=== PATIENT | female | born 1930 | race Caucasian/White ===

== ENCOUNTER 2021-01-22 19:57 | Inpatient (IN) | payer OTHER, SELFPAY ==
[~2021-01-22] VITALS: Ht 157.5 cm; Wt 72.6 kg
[2021-01-22 20:09] VITALS: BP_SYST 130
--- NOTE | 2021-01-22 20:09 | NUR ---
Placed in room 01 . Placed on monitoring specialist, blood pressure machine and pulse oximeter. To gown for exam. Side rails up.
[2021-01-22] MEDS ORDERED: ONDANSETRON HCL 4 MG/2 ML VIAL IVP ONE (20:15)
[2021-01-22] MEDS ORDERED: MORPHINE 4 MG INJ. 4 MG/ML VIAL IVP ONE ×2 (20:15→23:15)
[2021-01-22 20:35] LABS: BASOPHILS # (AUTO) 0.1 K/uL (0.0-0.2); BASOPHILS % (AUTO) 0.8 % (0.0-2.0); EOSINOPHILS # (AUTO) 0.2 K/uL (0.0-0.4); EOSINOPHILS % (AUTO) 3.1 % (0.0-4.0); HEMATOCRIT 34.5 % (36-48); HEMOGLOBIN 11.6 g/dL (12.0-16.0); LYMPHOCYTES # (AUTO) 1.5 K/uL (1.0-5.5); LYMPHOCYTES % (AUTO) 19.8 % (20.5-51.5); MEAN CORPUSCULAR HEMOGLOBIN 30 pg (27-31); MEAN CORPUSCULAR HGB CONC 34 % (32-36); MEAN CORPUSCULAR VOLUME 89 fL (79.0-98.0); MONOCYTES # (AUTO) 0.6 K/uL (0.0-1.0); MONOCYTES % (AUTO) 8.3 % (1.7-9.3); NEUTROPHILS # (AUTO) 5.1 K/uL (1.8-7.7); PLATELET COUNT (AUTO) 239 K/uL (130-430); RED BLOOD CELL COUNT(AUTO) 3.87 MIL/uL (4.2-6.2); RED CELL DISTRIBUTION WIDTH 14.8 % (9.0-15.0); WHITE BLOOD COUNT (AUTO) 7.5 K/uL (4.8-10.8)
[2021-01-22 20:47] LABS: ANION GAP 11 (5-15); CALCIUM 9.1 mg/dL (8.4-11.0); CHLORIDE 100 mmol/L (98-107); CREATININE 1.59 mg/dL (0.55-1.30); GLUCOSE 122 mg/dL (70-99); POTASSIUM 3.8 mmol/L (3.5-5.1); SODIUM SERUM 138 mmol/L (136-145); UREA NITROGEN, BLOOD 27 mg/dL (8-21)
[2021-01-22 20:53] LABS: ALANINE AMINOTRANSFERASE 14 U/L (12-78); ALBUMIN 3.6 g/dL (3.4-4.8); ASPARTATE AMINOTRANSFERASE 21 U/L (10-37); TOTAL BILIRUBIN 0.5 mg/dL (0.0-1.0)
--- NOTE | 2021-01-22 20:57 | NUR ---
PT BIB AMBULANCE AFTRE A FALL AT HOME, PT DOES NOT REMEMBER WHAT HAPPENED PRIOR TO FALL. PT HAVING SEVERE PAIN TO RIGHT HIP, UNABLE TO MOVE R LEG, PALPABLE PEDAL PULSES, ABLE TO MOVE TOES BUT HAS PAIN IN HIP. PT A/O X 4 AT THIS TIME ABLE TO ANSWER QUESTIONS AND FOLLOW COMMANDS. SKIN IN TACT, NO OPEN WOUNDS. BED IN LOWEST POSITION, BED LOCKED, AND SIDE RAIL UP X 1. PT ON BEDSIDE MONITOR. NKA HX - HTN, STENT PLACEMENT, HIGH CHOLESTEROL
[2021-01-22] MEDS ORDERED: MORPHINE 2 MG/ML INJ. SYRINGE IVP ONE (21:15)
--- NOTE | 2021-01-22 21:16 | NUR ---
SON BROUGHT BACK TO BEDSIDE
[2021-01-22] MEDS ORDERED: LIP10 PO (21:44)
[2021-01-22] MEDS ORDERED: METO-540 (21:44)
[2021-01-22] MEDS ORDERED: LOSA50TA3 PO (21:44)
[2021-01-22] MEDS ORDERED: RIVA15TA PO (21:44)
[2021-01-22] MEDS ORDERED: OMEP20CA15 PO (21:44)
[2021-01-22] MEDS ORDERED: TORS20TA23 PO (21:44)
[2021-01-22] MEDS ORDERED: BENZ-16 PO (21:44)
[2021-01-22] MEDS ORDERED: ONDANSETRON HCL 4 MG/2 ML VIAL IVP PRN (21:45)
[2021-01-22] MEDS ORDERED: HYDROmorphone 1 MG/ML INJ. CARTRIDGE IVP PRN (21:45)
[2021-01-22] MEDS ORDERED: HYDROmorphone 1 MG/ML INJ. CARTRIDGE ONE (21:47)
--- NOTE | 2021-01-22 22:09 | NUR ---
NASAL COVID SWAB DONE AND TAKEN TO LAB
--- NOTE | 2021-01-22 22:28 | NUR ---
# 16 FR Herrera catheter with use of sterile technique. Immediate return of 250 cc YELLOW urine noted. Bedside drainage bag placed below level of bladder. Urine sample collected and sent to lab. Pt tolerated procedure.
[2021-01-22] MEDS: NACL 0.9% 1,000 ML IV SCH (22:34)
--- NOTE | 2021-01-22 23:00 | NUR ---
PT HAS HAD NO RELIEF WITH PAIN MEDS FAR. NEXT SHECSULED PAIN MED NOT FOR 2-3 HRS. ER MD DIPESH ORDER MS FOR NOW. PT MOANING AND CRYING DUE TO CONSTAMT PAIN. WILL MEDICATE ORDERED PER ER MD.
--- NOTE | 2021-01-22 23:00 | NUR ---
PT TOOK PT'S JEWLERY, EARRINGS AND RING HOME.
--- NOTE | 2021-01-22 23:16 | NUR ---
Report given to LEANDRO Lubin. Patient will go to [facility] 117[facility]
[2021-01-23] VITALS (8 sets, daily range): BP systolic 94–140
--- NOTE | 2021-01-23 | NUR ---
WAS UNABLE TO REASSESS FOR PAIN RELIEF, PT WAS TRANSFERRED TO FLOOR. NS STILL INFUSING WELL.
--- NOTE | 2021-01-23 05:08 | NUR ---
CONSULTATION PAGED/CALLED Reason for Consultation: RT HIP FRX Person Who was Notified: FLORENTIN Consulting Physician: SHARON Auto Transmission Specialist Specialty: Ordering Physician: EZE
--- NOTE | 2021-01-23 08:00 | NUR ---
Pt in bed resting. Bed is at lowest position and call light is within reach. Son is at bedside. New linen was provided for pt. No s/s of distress. Pt has no c/o at this time. Skin is intact. IV is intact. NS is running at 50ml/hr. VSS. Will continue to monitor and reassess for pain.
--- NOTE | 2021-01-23 09:30 | NUR ---
Assessed pt and pt's IV was pulled out by pt. Son is at bedside and stated she pulled it out accidently. NS paused until another IV is placed. Pt is c/o hip pain 11/29. VSS.
[2021-01-23 10:00] LABS: BASOPHILS % (AUTO) 0.4 % (0.0-2.0); EOSINOPHILS # (AUTO) 0.2 K/uL (0.0-0.4); EOSINOPHILS % (AUTO) 2.4 % (0.0-4.0); HEMATOCRIT 33.2 % (36-48); HEMOGLOBIN 10.9 g/dL (12.0-16.0); LYMPHOCYTES # (AUTO) 1.2 K/uL (1.0-5.5); LYMPHOCYTES % (AUTO) 14.4 % (20.5-51.5); MEAN CORPUSCULAR HEMOGLOBIN 30 pg (27-31); MEAN CORPUSCULAR HGB CONC 33 % (32-36); MEAN CORPUSCULAR VOLUME 91 fL (79.0-98.0); MONOCYTES # (AUTO) 0.6 K/uL (0.0-1.0); MONOCYTES % (AUTO) 7.7 % (1.7-9.3); NEUTROPHILS # (AUTO) 6.3 K/uL (1.8-7.7); NEUTROPHILS % (AUTO) 75.1 % (40.0-70.0); PLATELET COUNT (AUTO) 213 K/uL (130-430); RED BLOOD CELL COUNT(AUTO) 3.65 MIL/uL (4.2-6.2); RED CELL DISTRIBUTION WIDTH 14.6 % (9.0-15.0); WHITE BLOOD COUNT (AUTO) 8.4 K/uL (4.8-10.8)
[2021-01-23] MEDS ORDERED: hydrALAZINE HCL 20 MG/ML VIAL IVP PRN (10:00)
[2021-01-23] MEDS ORDERED: PANTOPRAZOLE SODIUM 40 MG/VIAL (PROTONIX) IVP ONE (10:00)
[2021-01-23] MEDS ORDERED: LIDOCAINE PATCH 5% 1 EA TP ONE (10:00)
[2021-01-23 10:13] LABS: ANION GAP 11 (5-15); CALCIUM 9.1 mg/dL (8.4-11.0); CHLORIDE 102 mmol/L (98-107); CREATININE 1.95 mg/dL (0.55-1.30); GLUCOSE 105 mg/dL (70-99); POTASSIUM 4.4 mmol/L (3.5-5.1); SODIUM SERUM 139 mmol/L (136-145); UREA NITROGEN, BLOOD 31 mg/dL (8-21)
--- NOTE | 2021-01-23 10:35 | NUR ---
A new IV 22g was placed on her Left AC. Iv is intact and patent. IV wrapped with dressing to help prevent IV getting pulled out again. NS resumed at 50ml/hr. Morphine 2mg given IV.
[2021-01-23] MEDS: MORPHINE 2 MG/ML INJ. SYRINGE IVP PRN (10:45)
--- NOTE | 2021-01-23 11:37 | NUR ---
Nutrition Update Chris Scale 14 noted. Pt admitted for hip fracture. Diet: NPO BMI: 29.3 kg/m2 RD to follow per nutrition care standards.
--- NOTE | 2021-01-23 12:28 | NUR ---
Pt in bed resting with no c/o. Rates hip pain 3/10. All scheduled medications have been given at this time. Pt was moved from room 117 to room 104-A so she can be closer to nurses station for safety purposes.
--- NOTE | 2021-01-23 15:33 | NUR ---
Pt resting in bed with no c/o. Son at bedside and also attending dr is at bedside. Bed is in lowest position and call light within reach. Pt states she has minor pain and does not want any medication at the moment. Has no other c/o. No s/s of distress. VSS.
[2021-01-23] MEDS: NACL 0.9% 1,000 ML IV SCH (18:09)
--- NOTE | 2021-01-23 19:30 | NUR ---
Pt son Froilan requested to have mother move rooms to help her sleep. Son made aware that pt needs to be near nursing station for safety as pt removes ivs and pulls on keita cath. Son agreed that the room was okay to stay in.
[2021-01-23] MEDS: ATORVASTATIN 10 MG TABLET PO SCH (21:16)
--- NOTE | 2021-01-24 | NUR ---
Pt repeatedly tries to remove iv line and keita, blankets have been used to help prevent this. Gopi bandage has been applied to cover and protect IV line from pt.
[2021-01-24 00:40] VITALS: BP_SYST 94
--- NOTE | 2021-01-24 05:55 | NUR ---
Pt repeatedly tries to remove lines and clothes. Pt reports seeing and hearing a friend in the room. Pt has been reoriented several times through the night as she is often up talking to herself as her fellow roommate sleeps.
--- NOTE | 2021-01-24 07:30 | NUR ---
RECEIVED REPORT FROM PM NURSE. PATIENT RESTING IN BED, EYES CLOSED BUT EASILY AROUSABLE. RESPIRATIONS EVEN AND UL ON RA. ALL NEEDS MET. BED IN LOWEST POSITION, CALL LIGHT IN REACH, SAFETY MEASURES IN PLACE. WILL CONT TO MONITOR.
[2021-01-24 07:43] LABS: BASOPHILS % (AUTO) 0.3 % (0.0-2.0); EOSINOPHILS # (AUTO) 0.1 K/uL (0.0-0.4); EOSINOPHILS % (AUTO) 1.3 % (0.0-4.0); HEMATOCRIT 27.7 % (36-48); HEMOGLOBIN 9.4 g/dL (12.0-16.0); LYMPHOCYTES # (AUTO) 0.8 K/uL (1.0-5.5); LYMPHOCYTES % (AUTO) 8.2 % (20.5-51.5); MEAN CORPUSCULAR HEMOGLOBIN 30 pg (27-31); MEAN CORPUSCULAR HGB CONC 34 % (32-36); MEAN CORPUSCULAR VOLUME 90 fL (79.0-98.0); MONOCYTES # (AUTO) 0.9 K/uL (0.0-1.0); MONOCYTES % (AUTO) 8.5 % (1.7-9.3); NEUTROPHILS # (AUTO) 8.4 K/uL (1.8-7.7); NEUTROPHILS % (AUTO) 81.7 % (40.0-70.0); PLATELET COUNT (AUTO) 195 K/uL (130-430); RED BLOOD CELL COUNT(AUTO) 3.09 MIL/uL (4.2-6.2); RED CELL DISTRIBUTION WIDTH 14.8 % (9.0-15.0); WHITE BLOOD COUNT (AUTO) 10.3 K/uL (4.8-10.8)
[2021-01-24 08:05] LABS: ANION GAP 9 (5-15); CALCIUM 8.4 mg/dL (8.4-11.0); CHLORIDE 104 mmol/L (98-107); CREATININE 1.63 mg/dL (0.55-1.30); GLUCOSE 152 mg/dL (70-99); POTASSIUM 4.3 mmol/L (3.5-5.1); SODIUM SERUM 138 mmol/L (136-145); UREA NITROGEN, BLOOD 25 mg/dL (8-21)
[2021-01-24 08:33] VITALS: BP_SYST 127
[2021-01-24] MEDS: LOSARTAN POTASSIUM 50 MG TABLET (COZAAR) PO SCH (08:36)
[2021-01-24] MEDS: METOPROLOL SUCCINATE 25 MG TAB.SR.24H (TOPROL XL) PO SCH (08:36)
[2021-01-24] MEDS: PANTOPRAZOLE SODIUM 40 MG/VIAL (PROTONIX) IVP SCH (08:37)
[2021-01-24] MEDS: LIDOCAINE PATCH 5% 1 EA TP SCH (08:37)
[2021-01-24 12:00] VITALS: BP_SYST 126
[2021-01-24] MEDS: NACL 0.9% 1,000 ML IV SCH (14:15)
[2021-01-24 16:00] VITALS: BP_SYST 117
--- NOTE | 2021-01-24 16:23 | NUR ---
PATIENT FOUND WITH IV DISLODGED, CATH INTACT. ATTEMPTED TO INSERT NEW IV SITE, PT IS REFUSING, STATING "NOT NOW, LATER LATER." WILL ATTEMPT AGAIN. SON AT BEDSIDE. TOMATO PULPER OPERATOR AWARE.
--- NOTE | 2021-01-24 18:20 | NUR ---
INSERTED 22G TO LFA, NS INFUSING PER ORDER, IV SITE WNL. SECURED IV SITE WITH KERLIX, INSTRUCTED PT TO NOT REMOVE IV SITE. PATIENT VERBALIZED UNDERSTANDING. SAFETY MEASURES IN PLACE, WILL CONT TO MONITOR.
--- NOTE | 2021-01-24 19:30 | NUR ---
Opening note Received report from day shift. Pt is awake resting in bed. No s/s of respiratory distress. Breathing even and unlabored. IV site is intact and patent with fluids running at ordered rate. Fall and safety precautions in place with bed in lowest position, bed alarm on, and call light within reach
--- NOTE | 2021-01-24 19:31 | NUR ---
PATIENT RESTING IN BED, NO C/O PAIN/DISCOMFORT. RESPIRATIONS EVEN AND UL ON RA. ALL NEEDS MET. BED IN LOW, SIDE RAILS x2, SAFETY MEASURES IN PLACE, CALL LIGHT IN REACH. REPORT GIVEN TO PM NURSE FOR CONTINUITY OF CARE.
[2021-01-24] MEDS: ATORVASTATIN 10 MG TABLET PO SCH (20:18)
[2021-01-25] VITALS (7 sets, daily range): BP systolic 106–137
--- NOTE | 2021-01-25 00:15 | NUR ---
Rounds Pt is awake in bed watching TV. No s/s of acute distress. No needs at this time. Fall and safety checks in place
[2021-01-25] MEDS: MORPHINE 2 MG/ML INJ. SYRINGE IVP PRN ×2 (01:53→08:57)
[2021-01-25 04:45] LABS: BILIRUBIN,URINE NEGATIVE (NEGATIVE); BLOOD, URINE 2+ (NEGATIVE); CLARITY/URINE SL CLOUDY (CLEAR); COLOR,URINE YELLOW (YELLOW); GLUCOSE,URINE NEGATIVE (NEGATIVE); KETONES,URINE NEGATIVE (NEGATIVE); LEUKOCYTE ESTERASE ,URINE 2+ (NEGATIVE); NITRITE, URINE POSITIVE (NEGATIVE); PH,URINE 5.5 (5.0-8.0); PROTEIN URINE TRACE (NEGATIVE); UROBILINOGEN,URINE 0.2 (0.2-1.0)
[2021-01-25 05:13] LABS: BACTERIA,URINE MANY /HPF (None Seen); WBC,URINE 50-80 /HPF (0-3)
--- NOTE | 2021-01-25 07:08 | NUR ---
Closing note Pt is resting in bed, eyes closed. No s/s of respiratory distress. Breathing even and unlabored. IV site is intact and patent with fluids running at ordered rate. Herrera catheter intact and draining by gravity. All needs met throughout shift. Fall and safety precautions in place with bed in lowest position, bed alarm on, and call light within reach
[2021-01-25 07:17] LABS: BASOPHILS % (AUTO) 0.4 % (0.0-2.0); EOSINOPHILS # (AUTO) 0.1 K/uL (0.0-0.4); EOSINOPHILS % (AUTO) 1.2 % (0.0-4.0); HEMATOCRIT 28.5 % (36-48); HEMOGLOBIN 9.4 g/dL (12.0-16.0); LYMPHOCYTES # (AUTO) 1.2 K/uL (1.0-5.5); LYMPHOCYTES % (AUTO) 9.5 % (20.5-51.5); MEAN CORPUSCULAR HEMOGLOBIN 30 pg (27-31); MEAN CORPUSCULAR HGB CONC 33 % (32-36); MEAN CORPUSCULAR VOLUME 90 fL (79.0-98.0); MONOCYTES # (AUTO) 1.2 K/uL (0.0-1.0); MONOCYTES % (AUTO) 9.7 % (1.7-9.3); NEUTROPHILS # (AUTO) 9.8 K/uL (1.8-7.7); NEUTROPHILS % (AUTO) 79.2 % (40.0-70.0); PLATELET COUNT (AUTO) 202 K/uL (130-430); RED BLOOD CELL COUNT(AUTO) 3.15 MIL/uL (4.2-6.2); RED CELL DISTRIBUTION WIDTH 14.5 % (9.0-15.0); WHITE BLOOD COUNT (AUTO) 12.3 K/uL (4.8-10.8)
[2021-01-25 07:49] LABS: INR 1.2 (0.8-1.2); PROTHROMBIN TIME 12.1 SECS (9.5-12.5)
[2021-01-25 08:07] LABS: ANION GAP 11 (5-15); CALCIUM 8.7 mg/dL (8.4-11.0); CHLORIDE 103 mmol/L (98-107); CREATININE 1.46 mg/dL (0.55-1.30); GLUCOSE 141 mg/dL (70-99); POTASSIUM 4.3 mmol/L (3.5-5.1); SODIUM SERUM 138 mmol/L (136-145); UREA NITROGEN, BLOOD 21 mg/dL (8-21)
--- NOTE | 2021-01-25 08:19 | NUR ---
CONSULTATION PAGED REASON FOR CONSULTATION:A-FIB WAS CONSULT CALLED?Y PERSON WHO WAS NOTIFIED:RICKY CONSULTING PHYSICIAN:EFRAIN ARAUJO GEAR GRINDER SPECIALTY:CARDIO GEAR GRINDER PHONE NUMBER:[phone] REQUESTING PHYSICIAN:HOLLIE MEHTA
--- NOTE | 2021-01-25 08:32 | NUR ---
Cardio Notes: Shawna REEVES informed Dr. Campos of a consultation due to pt with Afib.
--- NOTE | 2021-01-25 08:50 | NUR ---
Pt on tele: Pt placed on tele per Dr. Sharif, due to irregular heart rate.
[2021-01-25] MEDS: PANTOPRAZOLE SODIUM 40 MG/VIAL (PROTONIX) IVP SCH (08:58)
[2021-01-25] MEDS: METOPROLOL SUCCINATE 25 MG TAB.SR.24H (TOPROL XL) PO SCH (08:59)
[2021-01-25] MEDS: LOSARTAN POTASSIUM 50 MG TABLET (COZAAR) PO SCH (09:00)
[2021-01-25] MEDS: LIDOCAINE PATCH 5% 1 EA TP SCH (09:00)
--- NOTE | 2021-01-25 09:07 | NUR ---
Chest pain: Pt complains of chest pain, 2mg IV morphine given. Dr. Campos notified, informed RN to hold Losartan and lidocaine patch. Pt placed on 2L NC, SpO2 99%. IV fluids increased to 80 mL per hour as ordered. EKG ordered. Will continue to monitor.
--- NOTE | 2021-01-25 09:29 | NUR ---
Transfer of care: Transferred care of pt to Neptali RN. Pt stable, resting in bed. No s/s of respiratory distress.
--- NOTE | 2021-01-25 09:30 | NUR ---
Patient received resting in bed, eyes closed, breathing is even and unlabored, neurovascular check complete at this time, continuing to monitor the patient, IVF adjusted by previous nurse to 80ml/hour, IV line is patent and infusing well, Herrera catheter in place draining to gravity, bed in lowest position, three side rails up, bed alarm on, bed close to nursing station, fall and aspiration precautions in place.
--- NOTE | 2021-01-25 11:20 | NUR ---
Called OR spoke with Elicia, regarding time for patient's surgery today. The patient's son called inquiring. The surgery is scheduled for 6:30pm tonight, will inform the patient's son.
--- NOTE | 2021-01-25 12:00 | NUR ---
Family patient's son is present at bedside, informed him of surgery time, he states he will be back this evening before the patient goes to surgery, call with any updates. Froilan (son) [phone]
[2021-01-25] MEDS: NACL 0.9% 1,000 ML IV SCH ×2 (12:52→17:01)
--- NOTE | 2021-01-25 13:55 | NUR ---
RN rounds patient resting in bed, eyes closed, breathing is even and unlabored, no signs of distress, IV line is patent and infusing well, Herrera Catheter intact and draining to gravity, continuing to monitor the patient, current rhythm is A FIB with a heart rate of 110 currently, bed in lowest position, three side rails up, bed alarm on, bed close to nursing station, fall and aspiration precautions in place, call light is within reach.
--- NOTE | 2021-01-25 18:22 | NUR ---
Closing note patient resting in bed, all needs met, Herrera catheter in place, draining to gravity, IV line is patent and infusing well, patient is waiting to go to the OR, called OR, patient will be picked up in about 30-40 minutes, will endorse report to NOC shift nurse, bed in lowest position, three side rails up, bed alarm on, call light is within reach, fall and aspiration precautions in place. Patient's son is at the bedside.
--- NOTE | 2021-01-25 20:00 | NUR ---
open note patient resting in bed with son at bed side. surgery scheduled for hip fracture repair. patient reports no discomfort at this time.
--- NOTE | 2021-01-25 21:53 | NUR ---
Surgery rescheduled Called OR/PACU and s/w Lala. She informed me that surgery is rescheduled for tomorrow and estimates between [phone]. She said patient can be NPO after midnight.
[2021-01-25] MEDS: ATORVASTATIN 10 MG TABLET PO SCH (22:00)
--- NOTE | 2021-01-25 22:18 | NUR ---
phone call with son Patients son called at [phone] asking if his mother was in surgery. He was informed that surgery has been rescheduled for tomorrow.
--- NOTE | 2021-01-25 23:00 | NUR ---
reviewed labs / Dr. Sharif Noted WBC trending up and UA result for this morning is 12.3 with many bacteria; notified Dr. Sharif and also informed she is not on any antibiotic; He asked if she is symptomatic or has fever and I replied no. No orders received.
--- NOTE | 2021-01-26 00:20 | NUR ---
sleeping med / Dr. Sharif Patient can't sleep and requesting sleeping pill. S/W Dr. Sharif and received medication order; TORB
[2021-01-26] MEDS ORDERED: ZOLPIDEM TARTRATE 5 MG TABLET PO PRN ×2 (00:30→08:45)
[2021-01-26 00:36] VITALS: BP_SYST 124
[2021-01-26] MEDS: MORPHINE 2 MG/ML INJ. SYRINGE IVP PRN ×2 (00:42→22:42)
--- NOTE | 2021-01-26 00:47 | NUR ---
moderate pain Patient reporting moderate pain and administered Morphine as ordered; wctm
--- NOTE | 2021-01-26 03:30 | NUR ---
awake, confused Patient is confused and keeps removing telemetry leads and also removed gown. She is calm and resting in bed,not attempting to get up. She was reoriented to surrounds and was not able to redirect; she thinks she is at home in living room. IVF infusing well, safety precautions in place.
[2021-01-26] MEDS: NACL 0.9% 1,000 ML IV SCH ×2 (04:25→22:55)
[2021-01-26 04:55] LABS: BASOPHILS # (AUTO) 0.1 K/uL (0.0-0.2); BASOPHILS % (AUTO) 0.6 % (0.0-2.0); EOSINOPHILS # (AUTO) 0.3 K/uL (0.0-0.4); EOSINOPHILS % (AUTO) 3.2 % (0.0-4.0); HEMATOCRIT 25.8 % (36-48); HEMOGLOBIN 8.5 g/dL (12.0-16.0); LYMPHOCYTES # (AUTO) 0.9 K/uL (1.0-5.5); LYMPHOCYTES % (AUTO) 10.2 % (20.5-51.5); MEAN CORPUSCULAR HEMOGLOBIN 30 pg (27-31); MEAN CORPUSCULAR HGB CONC 33 % (32-36); MEAN CORPUSCULAR VOLUME 92 fL (79.0-98.0); MONOCYTES # (AUTO) 0.8 K/uL (0.0-1.0); MONOCYTES % (AUTO) 8.4 % (1.7-9.3); NEUTROPHILS # (AUTO) 7.1 K/uL (1.8-7.7); NEUTROPHILS % (AUTO) 77.6 % (40.0-70.0); PLATELET COUNT (AUTO) 172 K/uL (130-430); RED BLOOD CELL COUNT(AUTO) 2.81 MIL/uL (4.2-6.2); RED CELL DISTRIBUTION WIDTH 15.2 % (9.0-15.0); WHITE BLOOD COUNT (AUTO) 9.2 K/uL (4.8-10.8)
--- NOTE | 2021-01-26 05:11 | NUR ---
Nutrition Update Chris Scale 15 noted. Pt admitted for Hip fracture Diet: NPO BMI: 29.3 kg/m2 RD to follow per nutrition care standards.
[2021-01-26 05:14] LABS: ANION GAP 8 (5-15); CALCIUM 7.8 mg/dL (8.4-11.0); CHLORIDE 105 mmol/L (98-107); CREATININE 1.35 mg/dL (0.55-1.30); GLUCOSE 132 mg/dL (70-99); POTASSIUM 4.1 mmol/L (3.5-5.1); SODIUM SERUM 136 mmol/L (136-145); UREA NITROGEN, BLOOD 20 mg/dL (8-21)
--- NOTE | 2021-01-26 06:38 | NUR ---
closing noted patient is noted to be sitting in chair with feet elevated on bed. when staff asked if he would like to lay down in bed he stated that the catheter is not comfortable while he is in bed. No noted pulling of the catheter and patient states that he is not in pain. Addendum: 01/26/21 at 0646 by Doretha Meza LVN This note belongs to another patient. error
--- NOTE | 2021-01-26 06:49 | NUR ---
closing note patient resting in bed at present time. She did not fall asleep till 4am. No noted signs of pain. catheter is patent draining clear yellow urine. patient has been NPO since midnight.
--- NOTE | 2021-01-26 07:55 | NUR ---
Opening note resting in bed, a/ox3- reoriented to place, time and event, the patient has periods of forgetfulness, breathing is even and unlabored, neurovascular check complete at this time, IV line is patent and infusing well, Herrera catheter in place draining to gravity, bed in lowest position, three side rails up, bed alarm on, bed close to nursing station, fall and aspiration precautions in place.
--- NOTE | 2021-01-26 08:05 | NUR ---
Transfer of care to Jennyfer REEVES.
[2021-01-26] MEDS: LOSARTAN POTASSIUM 50 MG TABLET (COZAAR) PO SCH (08:31)
[2021-01-26] MEDS: PANTOPRAZOLE SODIUM 40 MG/VIAL (PROTONIX) IVP SCH (08:31)
[2021-01-26] MEDS: LIDOCAINE PATCH 5% 1 EA TP SCH (08:31)
[2021-01-26] MEDS: METOPROLOL SUCCINATE 25 MG TAB.SR.24H (TOPROL XL) PO SCH (08:31)
[2021-01-26 08:44] VITALS: BP_SYST 115
[2021-01-26] MEDS ORDERED: POTASSIUM CHLORIDE 20 MEQ TAB.PRT.SR PO PRN (08:45)
[2021-01-26] MEDS ORDERED: ACETAMINOPHEN 325 MG TABLET PO PRN ×2 (08:45→09:00)
[2021-01-26] MEDS ORDERED: LORazepam 2 MG/ML VIAL IVP PRN (08:45)
[2021-01-26] MEDS ORDERED: ONDANSETRON HCL 4 MG/2 ML VIAL IVP PRN ×2 (08:45→16:00)
[2021-01-26] MEDS ORDERED: MAGNESIUM SULFATE 50 ML IV PRN (08:45)
[2021-01-26] MEDS ORDERED: DOCUSATE SODIUM 100 MG CAPSULE PO PRN (08:45)
[2021-01-26] MEDS ORDERED: MORPHINE 2 MG/ML INJ. SYRINGE IVP PRN (08:45)
[2021-01-26 08:47] VITALS: BP_SYST 115
--- NOTE | 2021-01-26 08:58 | NUR ---
Pt resting in bed, A+Ox2. Pt denies pain. IV noted to R arm infusing NS@80ml/hr. Tele insitu. CSMW satisfactory. No headache, dizziness, chest pain, N+T or edema. Lungs clear. No SOB/cough. RA 97%. BS x4. Void via keita- clear/yellow urine noted. Unknown LBM. Turn Q2H- pt not OOB. Awaiting surgery. NPO since midnight. VSS. Will continue to monitor.
--- NOTE | 2021-01-26 09:30 | NUR ---
Correctional Manager answered call from lab- pt MRSA (+). [phone]: Correctional Manager called Dr. Dailey- message left in regards to MRSA result.
[2021-01-26] MEDS: cefTRIAXone 1 GM in D5W 50 ML IV SCH (10:28)
[2021-01-26 12:00] VITALS: BP_SYST 149
--- NOTE | 2021-01-26 14:04 | NUR ---
CM: Per son Froilan, requesting pt going to [facility] for rehab. Froilan aware the ORIF surgery plans for this pm.
--- NOTE | 2021-01-26 15:57 | NUR ---
Dr. faustin called asking for pt to get a unit of blood. Video And Sound Recorder asked if pt will still be going for surgery and Dr. faustin stated she would but top give the blood as soon as its ready.
[2021-01-26 16:00] VITALS: BP_SYST 133
[2021-01-26] MEDS ORDERED: METOCLOPRAMIDE HCL 10 MG/2 ML VIAL IVP PRN (16:00)
[2021-01-26] MEDS ORDERED: fentaNYL CITRATE/PF 100 MCG/2 ML AMP IVP PRN ×2 (16:00)
[2021-01-26] MEDS ORDERED: WATER FOR IRRIGATION,STERILE 1,000 ML IRRIG.SOLN IR ONE (17:25)
[2021-01-26] MEDS ORDERED: BUPIVACAINE /PF 0.75% 10 ML VIAL INJ ONE (17:25)
[2021-01-26] MEDS ORDERED: CEFAZOLIN 2 GM IVPB PREMIX 50 ML IV ONE (17:25)
[2021-01-26] MEDS ORDERED: NS 500 ML IV.SOLN IV ONE (17:25)
[2021-01-26] MEDS ORDERED: PROPOFOL 200MG/ 20ML VIAL (DIPRIVAN) IV ONE (17:25)
[2021-01-26] MEDS ORDERED: NS IRRIG SOLN 1000 ML IR ONE (17:25)
--- NOTE | 2021-01-26 17:30 | NUR ---
Pt down to OR.
[2021-01-26] MEDS ORDERED: BUPIVACAINE LIPOSOME/PF 266 MG/20 ML VIAL INFIL ONE (18:13)
--- NOTE | 2021-01-26 20:40 | NUR ---
Post op notes From PACU after right hip ORIF patient is drowsy and confused , vitals sign monitored, with blood transfusion infusing , right hip dressing dry/intact , right leg warm to touch, with good peripheral sensation able to wiggle toes , dorsalis pedis pulse positive weak, will continue to monitor. Addendum: 01/26/21 at 2154 by Trisha Fagan RN 0 hours blood transfusion completed , vitals sign stable no sign of transfusion reaction, frequent monitoring , fall risk.
[2021-01-26] MEDS ORDERED: DOCUSATE SODIUM 100 MG CAPSULE PO SCH (21:00)
[2021-01-26] MEDS: ATORVASTATIN 10 MG TABLET PO SCH (21:00)
--- NOTE | 2021-01-26 22:00 | NUR ---
Spoke to son Froilan discussed patient safety , confused after surgery ,non compliant with instruction trying to pull out IV line keita catheter, agreed for wrist restrainst for safety/fall precaution.
[2021-01-26] MEDS ORDERED: CEFAZOLIN 1 GM IVPB PREMIX 50 ML IV ONE (22:22)
--- NOTE | 2021-01-26 22:35 | NUR ---
Patient is complaining of pain in the right hip , PRN pain meds IV push given will monitor safety./fall precaution initiated frequent monitoring.
[2021-01-26 23:18] VITALS: BP_SYST 149
--- NOTE | 2021-01-27 00:20 | NUR ---
Patient calm able to sleep after pain medication , no wrist restrainst , frequent monitoring due to risk of falling safety precaution
[2021-01-27] MEDS: CEFAZOLIN 1 GM IVPB PREMIX 50 ML IV SCH ×2 (01:05→10:22)
[2021-01-27 02:04] VITALS: BP_SYST 140
--- NOTE | 2021-01-27 02:05 | NUR ---
Patient on/off waking up confused telemetry uncontrolled AFIB , NO sign of acute discomfort,safety/fall precaution initiated, frequent monitoring.
--- NOTE | 2021-01-27 04:34 | NUR ---
Right hip dressing changed Patient is confused removed the right hip dressing , no active bleeding with connor , applied dry dressing with gauze under aseptic technique., will monitor.
[2021-01-27 06:49] LABS: BASOPHILS % (AUTO) 0.4 % (0.0-2.0); EOSINOPHILS # (AUTO) 0.1 K/uL (0.0-0.4); EOSINOPHILS % (AUTO) 0.9 % (0.0-4.0); HEMATOCRIT 29.9 % (36-48); HEMOGLOBIN 10.1 g/dL (12.0-16.0); LYMPHOCYTES # (AUTO) 0.8 K/uL (1.0-5.5); LYMPHOCYTES % (AUTO) 7.2 % (20.5-51.5); MEAN CORPUSCULAR HEMOGLOBIN 31 pg (27-31); MEAN CORPUSCULAR HGB CONC 34 % (32-36); MEAN CORPUSCULAR VOLUME 91 fL (79.0-98.0); MONOCYTES # (AUTO) 0.9 K/uL (0.0-1.0); MONOCYTES % (AUTO) 9.1 % (1.7-9.3); NEUTROPHILS # (AUTO) 8.6 K/uL (1.8-7.7); NEUTROPHILS % (AUTO) 82.4 % (40.0-70.0); PLATELET COUNT (AUTO) 174 K/uL (130-430); RED BLOOD CELL COUNT(AUTO) 3.27 MIL/uL (4.2-6.2); RED CELL DISTRIBUTION WIDTH 14.7 % (9.0-15.0); WHITE BLOOD COUNT (AUTO) 10.5 K/uL (4.8-10.8)
[2021-01-27 07:18] LABS: ANION GAP 9 (5-15); CALCIUM 8.4 mg/dL (8.4-11.0); CHLORIDE 108 mmol/L (98-107); CREATININE 1.19 mg/dL (0.55-1.30); GLUCOSE 145 mg/dL (70-99); POTASSIUM 4.1 mmol/L (3.5-5.1); SODIUM SERUM 140 mmol/L (136-145); UREA NITROGEN, BLOOD 18 mg/dL (8-21)
--- NOTE | 2021-01-27 07:40 | NUR ---
OPENING NOTE Received report from night nurse. Patient is alert and oriented x3. On room air and tolerating well with no signs of shortness of breath noted. IV is patent, infusing fluids as ordered. Bed locked and in lowest position. Call light within reach. Bed alarm on. Contact precautions in place. Will continue to monitor.
[2021-01-27 08:00] VITALS: BP_SYST 116
[2021-01-27] MEDS: PANTOPRAZOLE SODIUM 40 MG/VIAL (PROTONIX) IVP SCH (08:15)
[2021-01-27] MEDS: ENOXAPARIN SODIUM 40 MG/0.4 ML SYRINGE SUBCUT SCH (08:16)
[2021-01-27] MEDS: METOPROLOL SUCCINATE 25 MG TAB.SR.24H (TOPROL XL) PO SCH (08:17)
[2021-01-27] MEDS: cefTRIAXone 1 GM in D5W 50 ML IV SCH (08:17)
[2021-01-27] MEDS: MORPHINE 2 MG/ML INJ. SYRINGE IVP PRN (08:21)
[2021-01-27] MEDS: LOSARTAN POTASSIUM 50 MG TABLET (COZAAR) PO SCH (08:28)
[2021-01-27] MEDS: MUPIROCIN 2% TOPICAL OINTMENT 22 GM NS SCH ×2 (08:28→21:27)
[2021-01-27] MEDS: LIDOCAINE PATCH 5% 1 EA TP SCH (08:28)
[2021-01-27] MEDS ORDERED: ENOXAPARIN SODIUM 40 MG/0.4 ML SYRINGE SUBCUT SCH (09:00)
[2021-01-27] MEDS ORDERED: MUPIROCIN 1 GM OIN.PF.APP NS SCH (09:00)
--- NOTE | 2021-01-27 10:00 | NUR ---
RN NOTE Patient up with PT, able to sit on edge of bed. C/O pain at right hip. Morphine IVP given as ordered. Will continue to monitor.
--- NOTE | 2021-01-27 10:21 | NUR ---
Discharge Planning: DCP faxed pt referral to [facility] [phone] per family request, DCP to follow up. Addendum: 01/27/21 at 1230 by Yessi Altamirano DP [facility] [phone] patient will go to Rm 137A when discharged.
[2021-01-27] MEDS: NACL 0.9% 1,000 ML IV SCH ×2 (10:31→23:58)
--- NOTE | 2021-01-27 12:18 | NUR ---
Patient accepted at [facility] room [facility]
[2021-01-27 12:29] VITALS: BP_SYST 130
--- NOTE | 2021-01-27 14:30 | NUR ---
Skin tear Open skin tear noted on right buttocks. Dressing applied. Pictures taken and placed in chart.
[2021-01-27 16:51] VITALS: BP_SYST 125
--- NOTE | 2021-01-27 17:13 | NUR ---
RD Recommendation: Recommend to continue cardiac diet with Glucerna at B & D trays, & Demetrius BID (Provide additional 632 kcal, 25g protein) Encourage PO intake. Please refer to nutrition assessment for details.
--- NOTE | 2021-01-27 18:44 | NUR ---
CLOSING NOTE Patient currently resting in bed and respirations remain even and non-labored. IV is patent and infusing fluids as ordered. Herrera catheter is patent and draining by gravity. Bed alarm on and call light is within reach. Vital signs remained stable throughout shift. All needs met throughout shift. Will endorse to shift mechanic RN.
[2021-01-27 19:50] VITALS: BP_SYST 121
--- NOTE | 2021-01-27 19:50 | NUR ---
Opening notes Pt asleep, easily awakens, no s/s distress noted. VSS, afebrile. R. hip dressing C/D/I. Herrera catheter draining to gravity with dark yellow urine. IVF infusing at ordered rate R. FA 22G no s/s infiltration. Call light within/items within reach. Bed low, locked, siderails up, alarm on. Contact isolation maintained. To monitor.
[2021-01-27] MEDS: ATORVASTATIN 10 MG TABLET PO SCH (21:27)
--- NOTE | 2021-01-27 21:27 | NUR ---
Rounds/med pass Pt resting in bed. No s/s distress noted. Pt refused dinner tray. IVF infusing at ordered rate no s/s infiltration. Meds passed. Pt able to swallow pills whole. To monitor.
--- NOTE | 2021-01-27 21:30 | NUR ---
Incentive spirometer Encouraged pt to use I.S. 10x per hour while awake. Pt demonstrated understanding doing 500-700ml.
[2021-01-28 00:28] VITALS: BP_SYST 113
--- NOTE | 2021-01-28 01:10 | NUR ---
Rounds Pt asleep, no s/s distress noted. IVF infusing at ordered rate no s/s infiltration. Herrera catheter draining to gravity with dark yellow urine. To monitor.
[2021-01-28] MEDS: MORPHINE 2 MG/ML INJ. SYRINGE IVP PRN ×2 (05:44→12:14)
--- NOTE | 2021-01-28 05:55 | NUR ---
Closing notes/Pain/Dressing change Pt resting in bed, no s/s distress. Pt c/o pain 07/30 R. hip. Medicated with Morphine 2mg slow IVP as needed. R. lateral thigh dressing soiled with old dry blood. Changed dressing. Incision intact with connor, no redness or active bleed noted. IVF infusing at ordered rate R. FA no s/s infiltration. Herrera catheter draining to gravity secured. Bed low, locked, siderails up x3, alarm on. Contact isolation maintained. To endorse to AM nurse.
[2021-01-28 06:38] LABS: BASOPHILS # (AUTO) 0.1 K/uL (0.0-0.2); BASOPHILS % (AUTO) 0.6 % (0.0-2.0); EOSINOPHILS # (AUTO) 0.4 K/uL (0.0-0.4); HEMATOCRIT 24.7 % (36-48); HEMOGLOBIN 8.4 g/dL (12.0-16.0); LYMPHOCYTES # (AUTO) 1.1 K/uL (1.0-5.5); LYMPHOCYTES % (AUTO) 10.9 % (20.5-51.5); MEAN CORPUSCULAR HEMOGLOBIN 31 pg (27-31); MEAN CORPUSCULAR HGB CONC 34 % (32-36); MEAN CORPUSCULAR VOLUME 91 fL (79.0-98.0); MONOCYTES # (AUTO) 0.8 K/uL (0.0-1.0); MONOCYTES % (AUTO) 7.9 % (1.7-9.3); NEUTROPHILS # (AUTO) 7.5 K/uL (1.8-7.7); NEUTROPHILS % (AUTO) 76.6 % (40.0-70.0); PLATELET COUNT (AUTO) 177 K/uL (130-430); WHITE BLOOD COUNT (AUTO) 9.8 K/uL (4.8-10.8)
[2021-01-28 06:42] LABS: ANION GAP 10 (5-15); CHLORIDE 109 mmol/L (98-107); CREATININE 1.13 mg/dL (0.55-1.30); GLUCOSE 112 mg/dL (70-99); POTASSIUM 3.8 mmol/L (3.5-5.1); SODIUM SERUM 139 mmol/L (136-145); UREA NITROGEN, BLOOD 21 mg/dL (8-21)
[2021-01-28 08:00] VITALS: BP_SYST 104
--- NOTE | 2021-01-28 08:00 | NUR ---
OPENING NOTE RECEIVED REPORT FROM NIGHT NURSE. PT AxO x2, ONLY ORIENTED TO PERSON AND SITUATION. DENIES ANY PAIN, NO SHORTNESS OF BREATH ON ROOM AIR. IV FLUIDS INFUSING WELL AND NO SIGN OF INFILTRATION. SURGICAL DRESSING ON RIGHT HIP CLEAN, DRY AND INTACT. WARREN CATHETER IN PLACE AND DRAINING WELL. PLAN OF CARE DISCUSSED WITH PATIENT. SAFETY CHECKS DONE AND CALL LIGHT WITHIN REACH.
[2021-01-28] MEDS: LIDOCAINE PATCH 5% 1 EA TP SCH (09:33)
[2021-01-28] MEDS: ENOXAPARIN SODIUM 40 MG/0.4 ML SYRINGE SUBCUT SCH (09:33)
[2021-01-28] MEDS: LOSARTAN POTASSIUM 50 MG TABLET (COZAAR) PO SCH (09:34)
[2021-01-28] MEDS: MUPIROCIN 2% TOPICAL OINTMENT 22 GM NS SCH ×2 (09:35→20:47)
[2021-01-28] MEDS: METOPROLOL SUCCINATE 25 MG TAB.SR.24H (TOPROL XL) PO SCH (09:37)
[2021-01-28] MEDS: cefTRIAXone 1 GM in D5W 50 ML IV SCH (09:38)
[2021-01-28] MEDS: PANTOPRAZOLE SODIUM 40 MG/VIAL (PROTONIX) IVP SCH (09:38)
--- NOTE | 2021-01-28 10:27 | NUR ---
Discharge Planning: DCP faxed pt referral to [facility] [phone] per family request. DCP to follow up
[2021-01-28 12:54] VITALS: BP_SYST 111
[2021-01-28] MEDS: NACL 0.9% 1,000 ML IV SCH (14:33)
--- NOTE | 2021-01-28 15:00 | NUR ---
CM: communicated with [facility], the pt is clinically accepted. She will get the auth from [facility]. I notified the Mishel [facility] reviewer # [phone] [id number] about the dcp and requesting to expedite the authorization process. EVE to f/u in am.
[2021-01-28 16:52] VITALS: BP_SYST 116
--- NOTE | 2021-01-28 17:25 | NUR ---
WOUND CARE WOUND ON RIGHT BUTTOCK CLEANED WITH SALINE SOLUTION AND BARRIER CREAM APPLIED AROUND DEREK WOUND.COVERED WITH FOAM DRESSING. NO BLEEDING NOTED, SCANT YELLOW DRAINAGE ON BANDAGE. PT PAIN IS CONTROLLED, DECLINED PAIN MEDICATION.
--- NOTE | 2021-01-28 18:55 | NUR ---
CLOSING NOTE PT IN BED AND RESTING, REPOSITIONED PT AND STATES SHE IS MORE COMFORTABLE. SAFETY CHECKS WERE COMPLETED AND CALL LIGHT WITHIN REACH.
--- NOTE | 2021-01-28 20:05 | NUR ---
Opening notes Pt awake, watching TV, no s/s distress noted. VSS, afebrile. Pt denies pain at this time. R. hip dressing C/D/I. Herrera catheter draining to gravity with dark yellow urine. IVF infusing at ordered rate R. FA 22G no s/s infiltration. Call light within/items within reach. Bed low, locked, siderails up, alarm on. Contact isolation maintained. To monitor.
[2021-01-28 20:12] VITALS: BP_SYST 123
[2021-01-28] MEDS: ATORVASTATIN 10 MG TABLET PO SCH (20:46)
[2021-01-29 00:30] VITALS: BP_SYST 136
--- NOTE | 2021-01-29 02:35 | NUR ---
Rounds Pt asleep, no s/s distress noted on room air. Call light within reach. Robbie SCDs on. Bed low, locked, siderails up x3, alarm on. To monitor.
[2021-01-29] MEDS: NACL 0.9% 1,000 ML IV SCH (03:01)
--- NOTE | 2021-01-29 06:45 | NUR ---
Closing notes Pt asleep, easily awakens, no s/s distress noted. Pt denies pain at this time. R. hip dressing C/D/I. Herrera catheter draining to gravity with dark yellow urine. IVF infusing at ordered rate R. FA 22G no s/s infiltration. R. heel maintained elevated on pillow. Hip precaution in place. Call light within/items within reach. Bed low, locked, siderails up, alarm on. Contact isolation maintained. To endorse to AM nurse.
--- NOTE | 2021-01-29 08:14 | NUR ---
OPENING NOTES: PATIENT RESTING EATING BREAKFAST.HOB ELEVATED. BREATHING EVEN AND NON LABORED TO RA. BED LOCKED, ALARM ON AND IN LOWEST POSITION. FALL,SAFETY AND ASPIRATION PRECAUTION REINFORCED.CALL LIGHT WITHIN REACH.
[2021-01-29 08:23] VITALS: BP_SYST 112
[2021-01-29] MEDS: METOPROLOL SUCCINATE 25 MG TAB.SR.24H (TOPROL XL) PO SCH (08:39)
[2021-01-29] MEDS: LOSARTAN POTASSIUM 50 MG TABLET (COZAAR) PO SCH (08:39)
[2021-01-29] MEDS: PANTOPRAZOLE SODIUM 40 MG/VIAL (PROTONIX) IVP SCH (08:39)
[2021-01-29] MEDS: LIDOCAINE PATCH 5% 1 EA TP SCH (08:40)
[2021-01-29] MEDS: cefTRIAXone 1 GM in D5W 50 ML IV SCH (08:40)
[2021-01-29] MEDS: MORPHINE 2 MG/ML INJ. SYRINGE IVP PRN (08:43)
[2021-01-29] MEDS: MUPIROCIN 2% TOPICAL OINTMENT 22 GM NS SCH ×2 (08:49→21:38)
[2021-01-29 12:14] VITALS: BP_SYST 101
--- NOTE | 2021-01-29 13:06 | NUR ---
CM: f/u with Bee/[facility] , auth dept # [id number] opt 8. stated the case is in review, no decision made yet.
--- NOTE | 2021-01-29 13:24 | NUR ---
PHYSICAL THERAPY CO-SIGN The Physical Therapy Progress Notes documented by Social Media Sr Strategy Manager have been reviewed. Reviewed/Co-Signed by: Kasey Peters PT Documentation Done by:GÓMEZ HOLLY PTA LATE ENTRY FOR 01/28/21 Addendum: 01/29/21 at 1325 by Kasey Peters PT Amended: Links added.
--- NOTE | 2021-01-29 13:24 | NUR ---
PHYSICAL THERAPY CO-SIGN The Physical Therapy Progress Notes documented by Psychological Anthropologist have been reviewed. Reviewed/Co-Signed by: Kasey Peters PT Documentation Done by:GÓMEZ HOLLY PTA Addendum: 01/29/21 at 1325 by Kasey Peters PT Amended: Links added.
--- NOTE | 2021-01-29 15:23 | NUR ---
RN NOTES/ WC NURSE: WOUND DRESSING AND WOUND CARE DONE WITH WC RN. NO S/S OF ACUTE DISTRESS NOTED. FALL AND SAFETY MEASURES PROVIDED. CALL LIGHT WITHIN REACH.
--- NOTE | 2021-01-29 15:28 | NUR ---
Discharge Planning: Discharge pending [facility] [phone] receiving authorization.
--- NOTE | 2021-01-29 15:29 | NUR ---
WOUND EVALUATION: Wound Consult received from Dr. Sharif. Thank you, Dr. Sharif, for the consult. Patient received in a Leonora Bed with an Isoflex KATIE mattress with low air loss therapy initiated, awake, alert, and oriented. Patient is unable to turn in bed independently. Chris Score is a 16. Past Medical History: A-fib, HTN, HLD, Lumbago, right hip pain, GERD, Hernia Repair (w/ mesh). Recent Labs: WBC 9.8, RBC 2.70, hemoglobin 8.4, hematocrit 24.7, chloride 109, BUN 21, creatinine 1.13, glucose 112, calcium 8.0. Microbiology: Urine culture results positive for E. coli. MRSA screen results positive. Intrinsic factors that delay wound healing: History of Xarelto use for A-fib (patient is now post-op). Extrinsic factors that delay wound healing: Decreased mobility. Wound Assessment: 1. Right Buttock: Skin tear. Skin tear bed has 100% red tissue. No odor, scant sanguineous drainage. Periskin tear intact, small residual skin left. Skin tear measures 2.0 cm x 4.5 cm. Recommend: Cleanse skin tear with normal saline. Gently pat dry around skin tear. Apply Calmoseptine cream onto skin tear. Cover with 4x4 foam dressing. Perform skin tear care daily, and as needed for dressing soiling or dislodgement. 2. Left Buttock: Area of dark discoloration possible ecchymosis. No odor, no drainage. Area is not soft or boggy. Site measures 4.7 cm x 3.9 cm. Recommend: Cleanse site with mild soap and water if soiled. Gently pat dry. Cover site with 4 x 4 foam dressing for protection. Perform site care daily, and as needed for dressing soiling or dislodgment. Also recommend: Reposition patient side to side only every 2 hours with pillow support (Keep 1 pillow underneath each buttock with pillows touching each other underneath patient. Facilitate turning by placing 1 pillow under left buttock for 2 hours, then take same pillow and place underneath right buttock for 2 hours). Do not place patient flat on her back at any time. Off-load pressure areas with pillows for pressure re-distribution. Offload, elevate and float bilateral heels with pillows. Perform skin care and monitor skin integrity Q shift. Use Calmoseptine cream on buttocks and other moisture susceptible areas QID and as needed for soiling. Maintain patient on a low air-loss mattress.
[2021-01-29 15:42] VITALS: BP_SYST 110
[2021-01-29] MEDS ORDERED: MENTHOL/ZINC OXIDE 113 GM OINT. TP PRN (16:00)
[2021-01-29] MEDS: RIVAROXABAN 15 MG TABLET PO SCH (18:07)
--- NOTE | 2021-01-29 19:53 | NUR ---
CLOSING NOTES: PATIENT RESTING IN BED. BREATHING EVEN AND NON LABORED TO RA. BED LOCKED, ALARM ON AND IN LOWEST POSITION. FALL,SAFETY AND ASPIRATION PRECAUTIONS PROVIDED. CALL LIGHT WITHIN REACH.
[2021-01-29 20:00] VITALS: BP_SYST 120
[2021-01-29] MEDS: ATORVASTATIN 10 MG TABLET PO SCH (21:38)
[2021-01-30] VITALS: BP_SYST 121
--- NOTE | 2021-01-30 02:22 | NUR ---
TELE: PT IS OFF THE TELEMONITOR , REMINDED RN AROUND [id number], RN STILL DIDNT PUT IT BACK AGAIN , REMINDED AGAIN .
[2021-01-30 08:00] VITALS: BP_SYST 138
--- NOTE | 2021-01-30 08:00 | NUR ---
Opening Notes: Pt awake, watching TV, no s/s of respiratory distress noted. VSS, afebrile. Pt denies pain at this time. R. hip dressing is clean, dry and intact with scant yellow drainage. Herrera catheter draining to gravity with dark yellow urine. Right FA IV 22G is SL, no s/s infiltration. Call light within/items within reach. Bed low, locked, siderails up, bed alarm on. Contact isolation maintained. Will continue to monitor.
[2021-01-30] MEDS: LOSARTAN POTASSIUM 50 MG TABLET (COZAAR) PO SCH (09:16)
[2021-01-30] MEDS: METOPROLOL SUCCINATE 25 MG TAB.SR.24H (TOPROL XL) PO SCH (09:17)
[2021-01-30] MEDS: LIDOCAINE PATCH 5% 1 EA TP SCH (09:18)
[2021-01-30] MEDS: PANTOPRAZOLE SODIUM 40 MG/VIAL (PROTONIX) IVP SCH (09:18)
[2021-01-30] MEDS: MUPIROCIN 2% TOPICAL OINTMENT 22 GM NS SCH ×2 (09:21→22:01)
[2021-01-30 10:16] VITALS: BP_SYST 138
[2021-01-30 11:39] VITALS: BP_SYST 112
--- NOTE | 2021-01-30 12:00 | NUR ---
RN Rounds: Pt awake, watching TV with family at bedside, no s/s of respiratory distress noted. VSS, afebrile. Pt denies pain at this time. R. hip dressing is intact with yellow drainage. Herrera catheter draining to gravity with dark yellow urine. Right FA IV 22G is SL, no s/s infiltration. Call light within/items within reach. Bed low, locked, siderails up, bed alarm on. Contact isolation maintained. Will continue to monitor.
[2021-01-30 15:30] VITALS: BP_SYST 121
--- NOTE | 2021-01-30 15:30 | NUR ---
Remove Herrera: Removed Herrera, 100ml of yellow urine remaining in bag, catheter intact, provide marilynn care.
--- NOTE | 2021-01-30 16:00 | NUR ---
Pt Remove IV: Pt accidently removed IV catheter. No bleeding, no infiltration. Will insert new IV.
[2021-01-30] MEDS: RIVAROXABAN 15 MG TABLET PO SCH (18:18)
--- NOTE | 2021-01-30 18:29 | NUR ---
Closing Rounds: Pt awake eating dinner, watching TV, no s/s of respiratory distress noted. VSS, afebrile. Pt denies pain at this time. R. hip dressing is intact with no drainage. Right FA IV 22G was pulled out, need new IV. Call light within/items within reach. Bed low, locked, siderails up, bed alarm on. Contact isolation maintained. Will endorse to list of first job ideas.
--- NOTE | 2021-01-30 18:30 | NUR ---
Nutrition F/U RD reviewed pt's current EMR record including diet Hx, physician notes, nursing notes, pertinent labs/meds/procedures, care trends, and care activity. Admission Dx: Hip fracture PMH: atrial fibrillation, HTN, lumbago, GERD, HLD. Pt is also admitted w/ R. hip fracture, A fib, HTN, HLD, lumbago, dementia, obesity. SARS-CoV-2 Ag (Rapid) Negative 01/22 Current Diet Order/Nutrition Support: Cardiac, Ensure High Protein BID, Demetrius BID Subjective Info: Nutrition Consult received d/t skin tear, Sx incision x2 01/29/[address] bedside visit deferred d/t high RD/lack of time. Per EMR review, pt is POD 4 s/p R hip ORIF 01/26; PO intake average of 48% x9 meals; abd is soft and non-distended w/ active bowel sounds; no BM noted since 01/23; Chris scale: 15, Sx incisions x2 noted. Pt is not yet meeting nutritional needs. Pertinent Medications: xarelto, protonix IV, lipitor, morphine Pertinent Labs: Cl 109 H, BG 112 H Height (Feet) 5 feet Height (Inches) 2.00 inches Weight (Pounds) 160 pounds -- stable since 01/27 Weight (Calculated Kilograms) 72.505978 kilograms Patient Weight 72.575 kg Body Mass Index 29.26 kg/m2 [place]/Adjusted Body Weight IBW: 110#/50kg Weight Status Overweight Current % PO Poor (25-49%) Estimated Energy Expenditure (kcals/day) 1537-1762 kcal (30-35 kcal/kg IBW wound healing) Estimated Protein Required (g/day) 50 65g (1.0 1.3g/kg IBW wound healing) Estimated Fluid Required (l/day) 4855-4060 ml (25-30 ml/kg IBW for maintenance) Problem/Etiology/Signs/Symptoms Increased nutrient need R/T increased physiological demand AEB R. hip surgical incision wound. *ongoing Expected Outcomes/Goals Monitor appetite and PO intakes w/ goal of pt meeting at least 75% of estimated nutritional needs, labs trending WNL, normal GI function, and skin integrity/wt maintenance Dietitian Recommendations * Continue cardiac diet w/ Ensure High Protein BID, Demetrius BID (supplements provide an additional 500 kcal, 37 gm protein) * Encourage PO intake Follow Up High Risk: F/U in 2-3 days
--- NOTE | 2021-01-30 18:38 | NUR ---
Dietitian Recommendations * Continue cardiac diet w/ Ensure High Protein BID, Demetrius BID (supplements provide an additional 500 kcal, 37 gm protein) * Encourage PO intake LP, RD Please refer to Nutrition F/U for details.
[2021-01-30 20:00] VITALS: BP_SYST 127
[2021-01-30] MEDS: ATORVASTATIN 10 MG TABLET PO SCH (21:59)
--- NOTE | 2021-01-30 22:44 | NUR ---
medication pass patient tolerated PM medication with no noted issues.
[2021-01-31 00:57] VITALS: BP_SYST 140
--- NOTE | 2021-01-31 01:49 | NUR ---
IV PLACEMENT: # 22 gauge angiocath placed to right wrist. Use of asceptic technique. Opsite placed over site. Blood return noted. Flushed with 5cc of normal saline. No evidence of infiltration noted. Patient tolerated well.
--- NOTE | 2021-01-31 06:36 | NUR ---
closing note patient is sleeping side lying with heels floating. she had a large void on last change. No signs of pain noted.
[2021-01-31 08:00] VITALS: BP_SYST 116
--- NOTE | 2021-01-31 08:00 | NUR ---
Opening notes: Pt awake eating breakfast, no s/s of respiratory distress noted. VSS, afebrile. Pt denies pain at this time. R. hip dressing is intact with no drainage. Right wrist 22G intact, no s/s of infiltrates. Call light within/items within reach. Bed low, locked, siderails up, bed alarm on. Contact isolation maintained. Will continue to monitor.
[2021-01-31] MEDS: LIDOCAINE PATCH 5% 1 EA TP SCH (09:44)
[2021-01-31] MEDS: PANTOPRAZOLE SODIUM 40 MG/VIAL (PROTONIX) IVP SCH (09:44)
[2021-01-31] MEDS: METOPROLOL SUCCINATE 25 MG TAB.SR.24H (TOPROL XL) PO SCH (09:48)
[2021-01-31] MEDS: LOSARTAN POTASSIUM 50 MG TABLET (COZAAR) PO SCH (09:48)
[2021-01-31] MEDS: MUPIROCIN 2% TOPICAL OINTMENT 22 GM NS SCH ×2 (09:49→21:12)
--- NOTE | 2021-01-31 10:00 | NUR ---
Dr Wu: Dr. Campos wants pt bladder scanned, will scan pt's bladder.
--- NOTE | 2021-01-31 11:00 | NUR ---
Bladder scan: Pt had 970mL remaining in bladder. Will report to
[2021-01-31 11:26] VITALS: BP_SYST 143
--- NOTE | 2021-01-31 11:30 | NUR ---
Pt Void: Pt was able to urinate, no need for Herrera insertion.
--- NOTE | 2021-01-31 11:45 | NUR ---
CM: CALL AND SPOKE WITH PHYSIOTHERAPY PRACTICE MANAGER: (TRINI) TO FOLLOW-UP ON AUTHORIZATION STATUS FOR ACCEPTANCE INTO [facility], STATES THAT CASE IS STILL PENDING AT THIS TIME, BUT WILL FORWARD AN E-MAIL TO HER DEPARTMENT REQUESTING IF THE CASE COULD BE EXPEDITED TODAY, CALL BACK INFORMATION GIVEN, CONT' TO AWAIT RESPONSE.
--- NOTE | 2021-01-31 14:38 | NUR ---
RN Rounds: Pt awake eating lunch, no s/s of respiratory distress noted. VSS, afebrile. Pt denies pain at this time. R. hip dressing is intact with no drainage. Right wrist 22G intact, no s/s of infiltrates. Call light within/items within reach. Bed low, locked, siderails up, bed alarm on. Contact isolation maintained. Will continue to monitor.
[2021-01-31 15:51] VITALS: BP_SYST 133
--- NOTE | 2021-01-31 18:50 | NUR ---
Closing notes: Pt awake eating dinner, family in room feeding pt, no s/s of respiratory distress noted. VSS, afebrile. Pt denies pain at this time. R. hip dressing is intact with no drainage. Right wrist 22G intact, no s/s of infiltrates. Call light within/items within reach. Bed low, locked, siderails up, bed alarm on. Contact isolation maintained. Will endorse to tire molder.
--- NOTE | 2021-01-31 19:20 | NUR ---
CHANGE OF SHIFT; endorsed by day shift/ S?P rt. ORIF 01/26. on contact isolation for MRSA nares. pt. fall risk, close to nurses station. call light within reach.
--- NOTE | 2021-01-31 20:15 | NUR ---
NOTES: pt. awake, alert but gets confused. keeps removing leads on her tele box. noted cheeks wilmer red. pt. removed also her rt. hip dressing. IV lock on rt. forearm. sequentials on. VS checked. repositioned. on room air. follows simple commands.
[2021-01-31 20:30] VITALS: BP_SYST 111
[2021-01-31] MEDS: ATORVASTATIN 10 MG TABLET PO SCH (21:11)
[2021-01-31] MEDS: RIVAROXABAN 15 MG TABLET PO SCH (21:13)
--- NOTE | 2021-01-31 21:30 | NUR ---
NOTES: pt. still awake, still removing cables on and off. pt. been looking for her son and told her he left but does not want to believe me. reoriented. pt. incontinent of urine.
--- NOTE | 2021-02-01 00:15 | NUR ---
NOTES: pt. finally went to sleep after sleeping medication given, qite restless earlier, keep taking off tele monitor cables.
[2021-02-01 00:55] VITALS: BP_SYST 117
--- NOTE | 2021-02-01 04:45 | NUR ---
NOTES: pt. removed everything, her gown, leads, cover. incontinent of bowel and stool. marilynn care dne. foam dressing intact on bilateral buttocks. z bennett applied around with some redness. pt. went back to sleep. continue to monitoe.
--- NOTE | 2021-02-01 06:25 | NUR ---
CLOSING NOTES; rt. hip dressing changed., connor intact. IV lock patent. needs attended. for further care and assistance. for further care and assistance. will endorse to incoming shift.
--- NOTE | 2021-02-01 07:13 | NUR ---
PHYSICAL THERAPY CO-SIGN The Physical Therapy Progress Notes documented by Ironer Hand have been reviewed. Reviewed/Co-Signed by: Keon Waterman Documentation Done by: GÓMEZ HOLLY PTA Addendum: 02/01/21 at 0714 by Keon Waterman PT Amended: Links added.
--- NOTE | 2021-02-01 07:13 | NUR ---
PHYSICAL THERAPY CO-SIGN The Physical Therapy Progress Notes documented by Software Quality Engineer have been reviewed. Reviewed/Co-Signed by: Keon Waterman Documentation Done by: LAM FRANCISCO PTA Addendum: 02/01/21 at 0714 by Keon Waterman PT Amended: Links added.
--- NOTE | 2021-02-01 07:25 | NUR ---
OPENING NOTE PT sleeping, no distress or pain. No shortness of breath on room air. IV on right forearm clean dry and intact. Surgical dressing on right hip clean dry and intact. Reposited PT in bed, safety checks made and call light within reach.
[2021-02-01 08:06] VITALS: BP_SYST 118
--- NOTE | 2021-02-01 09:31 | NUR ---
CM: S/W Lola at [facility] auth dept ,I requested to complete the authorization decision clarisse. The pt needs to dc to the rehab today. Lola stated all documents received she will escalate to get the auth for [facility]. Addendum: 02/01/21 at 1453 by Fernie Hyde RN >> Per Ashley/[facility], the pt is approved for 7 days rehab auth # [id number] at [facility] aware. CM faxed repeat covid test and PT note to her. She then assigned pt to room 1207 B bed available after 3 pm. RN to report tel # [phone]. The ambulance transfer set up per pierce Dickson.
[2021-02-01] MEDS: LOSARTAN POTASSIUM 50 MG TABLET (COZAAR) PO SCH (09:32)
[2021-02-01] MEDS: METOPROLOL SUCCINATE 25 MG TAB.SR.24H (TOPROL XL) PO SCH (09:33)
[2021-02-01] MEDS: LIDOCAINE PATCH 5% 1 EA TP SCH (09:39)
[2021-02-01] MEDS: PANTOPRAZOLE SODIUM 40 MG/VIAL (PROTONIX) IVP SCH (09:40)
[2021-02-01 11:32] VITALS: BP_SYST 155
--- NOTE | 2021-02-01 14:50 | NUR ---
Discharge Planning: PRP arranged transport with [facility] 4:00pm to [facility] [phone] Rm [id number]. Patient packet to nurse station.
[2021-02-01 15:22] VITALS: BP_SYST 112
[2021-02-01 15:42] VITALS: BP_SYST 112
--- NOTE | 2021-02-01 17:05 | NUR ---
PT TRANSFERRED Report given to Trace at [facility] . Transfer packet with Transfer Orders and Medication Reconciliation form given to EMT with report. Exitcare provided. [facility] ID band removed, replaced with ID band with pt's name and . IV catheter removed, intact and dressing applied, no active bleeding. All belongings sent with patient. Patient left floor via gurney escorted by EMT in no distress.
--- NOTE | 2021-02-02 07:20 | NUR ---
PHYSICAL THERAPY CO-SIGN The Physical Therapy Progress Notes documented by Manufacturing Sr Engineer have been reviewed. Reviewed/Co-Signed by: Keon Waterman Documentation Done by: GÓMEZ HOLLY PTA Addendum: 02/02/21 at 0720 by Keon Waterman PT Amended: Links added.
== END 2021-02-01 17:05 | DRG 480 ==
LOC: SED 19:57 → SMU 21:32 → STU 01-25 23:33
PROVIDERS: ADMIT Hospitalist; ATTEND Hospitalist
PROC: 0QS604Z Reposition Right Upper Femur with Internal Fixation Device, Open Approach (ICD-10-PCS; 2021-01-26)
PROC: 3E0T3BZ Introduction of Anesthetic Agent into Peripheral Nerves and Plexi, Percutaneous Approach (ICD-10-PCS; 2021-01-26)
PROC: 30233N1 Transfusion of Nonautologous Red Blood Cells into Peripheral Vein, Percutaneous Approach (ICD-10-PCS; principal; 2021-01-26 17:25)
DX: S72.141A Displaced intertrochanteric fracture of right femur, initial encounter for closed fracture (principal); N17.0 Acute kidney failure with tubular necrosis; I48.20 Chronic atrial fibrillation, unspecified; N39.0 Urinary tract infection, site not specified; E78.5 Hyperlipidemia, unspecified; N18.30 Chronic kidney disease, stage 3 unspecified; I12.9 Hypertensive chronic kidney disease with stage 1 through stage 4 chronic kidney disease, or unspecified chronic kidney disease; K21.9 Gastro-esophageal reflux disease without esophagitis; E66.9 Obesity, unspecified; B95.62 Methicillin resistant Staphylococcus aureus infection as the cause of diseases classified elsewhere; M54.9 Dorsalgia, unspecified; E86.0 Dehydration; D50.9 Iron deficiency anemia, unspecified; Z20.822 Contact with and (suspected) exposure to COVID-19; B96.20 Unspecified Escherichia coli [E. coli] as the cause of diseases classified elsewhere; R07.9 Chest pain, unspecified; F03.90 Unspecified dementia, unspecified severity, without behavioral disturbance, psychotic disturbance, mood disturbance, and anxiety; W06.XXXA Fall from bed, initial encounter; Y93.89 Activity, other specified; I25.2 Old myocardial infarction; Y92.098 Other place in other non-institutional residence as the place of occurrence of the external cause; Y99.8 Other external cause status; Z95.5 Presence of coronary angioplasty implant and graft; Z79.01 Long term (current) use of anticoagulants; Z79.899 Other long term (current) drug therapy; Z87.891 Personal history of nicotine dependence; Z68.29 Body mass index [BMI] 29.0-29.9, adult
CPT/HCPCS: 36415; 71045; 72170-TC; 76000; 80048; 80053; 81000; 84484; 85025; 85610-TC; 85730-TC; 86886; 86900; 86901; 86920; 87081; 87086; 93005; 93306; 96374; 96375; 96376; 97110-GP; 97112-GP; 97116-GP; 97530-GP; 99285; C1713; C1769; C9113; C9290; G0378; J0690; J0696; J1170; J1650; J2270; J2405; J2704; J3490; J7040; J7060; P9021